=== PATIENT | female | born 1965 | race Caucasian/White ===

== ENCOUNTER 2025-05-12 20:58 | Inpatient (IN) | payer OTHER ==
[2025-05-12] MEDS ORDERED: Ondansetron PF 4 MG/2 ML Vial ONE (21:23)
[2025-05-12] MEDS ORDERED: Ketorolac Tromethamine 30 MG (1 mL) VIAL ONE (21:23)
[2025-05-12 21:35] LABS: Bacteria/HPF None Seen HPF (None Seen); CAUTI Indications for Culture Pelvic or flank pain; Glucose, Urine (Dipstick) Normal (Negative); Leukocyte Negative Leu/uL (Negative); Protein, Urine (Dipstick) Negative (Neg-Trace); Specific Gravity, Urine 1.020 (1.002-1.036); WBC/HPF None Seen HPF (0-3)
[2025-05-12 21:37] LABS: Urine Culture Reflex No No
[2025-05-12 21:40] LABS: #Basophils 0.04 10x3/uL (0.0-0.2); #Eosinophils 0.17 10x3/uL (0.0-0.7); #Monocytes 0.68 10x3/uL (0.11-0.59); #Neutrophils 7.68 10x3/uL (1.40-6.50); %Basophils 0.4 % (0.0-1.0); %Eosinophils 1.6 % (0.0-10.0); %Lymphocytes 19.6 % (21.0-51.0); %Monocytes 6.4 % (0.0-10.0); %Neutrophils 71.7 % (42.0-75.0); Hematocrit 35.6 % (36.0-47.0); Hemoglobin 12.3 g/dL (12.0-16.0); Mean Corpuscular Hemoglobin 29.8 pg (27.0-31.0); Mean Corpuscular Volume 86.2 fL (78.0-98.0); Platelet Count 176 10x3/uL (130-400); Red Blood Cell (RBC) Count 4.13 mill/uL (4.20-5.40); White Blood Cell (WBC) Count 10.69 10x3/uL (4.8-10.8)
[2025-05-12 21:56] LABS: ALT (SGPT) 47 U/L (Less than 34); AST (SGOT) 69 U/L (11-34); Albumin 4.2 g/dL (3.1-4.5); Alkaline Phosphatase 68 U/L (40-110); Anion Gap 18 mmol/L (10-20); BUN (Urea Nitrogen) 17 mg/dL (9.8-20.1); Bilirubin, Total 1.2 mg/dL (0.3-1.2); Calc. Creatinine Clearance 0 mL/min (70-130); Calcium 9.6 mg/dL (7.8-10.44); Carbon Dioxide 21 mmol/L (23-31); Chloride 105 mmol/L (98-107); Globulin 3.2 g/dL (2.4-3.5); Glucose 126 mg/dL (80-115); Lipase 46 U/L (8-78); Potassium 3.6 mmol/L (3.5-5.1); Sodium 140 mmol/L (136-145)
[2025-05-12 21:59] LABS: Troponin I Less than 0.010 ng/mL (< 0.028)
[2025-05-13] MEDS ORDERED: Melatonin 3 MG TAB PO PRN (00:42)
[2025-05-13] MEDS ORDERED: Senokot S 8.6-50 MG TAB PO PRN (00:42)
[2025-05-13] MEDS ORDERED: Acetaminophen 325 MG TAB PO PRN (00:42)
[2025-05-13] MEDS ORDERED: Ondansetron PF 4 MG/2 ML Vial IVP PRN (00:42)
[2025-05-13 02:15] VITALS: BMI 33.3
[2025-05-13] MEDS ORDERED: HYDROcodone/Acetaminophen 5/325 mg Tablet PO PRN (03:55)
[2025-05-13 05:53] LABS: #Basophils Less than 0.03 10x3/uL (0.0-0.2); #Eosinophils 0.10 10x3/uL (0.0-0.7); #Monocytes 0.47 10x3/uL (0.11-0.59); #Neutrophils 3.08 10x3/uL (1.40-6.50); %Basophils 0.4 % (0.0-1.0); %Eosinophils 1.9 % (0.0-10.0); %Lymphocytes 29.0 % (21.0-51.0); %Monocytes 9.1 % (0.0-10.0); %Neutrophils 59.4 % (42.0-75.0); Hematocrit 33.8 % (36.0-47.0); Hemoglobin 11.3 g/dL (12.0-16.0); Mean Corpuscular Hemoglobin 29.7 pg (27.0-31.0); Mean Corpuscular Volume 88.9 fL (78.0-98.0); Platelet Count 150 10x3/uL (130-400); Red Blood Cell (RBC) Count 3.80 mill/uL (4.20-5.40); White Blood Cell (WBC) Count 5.18 10x3/uL (4.8-10.8)
[2025-05-13 06:11] LABS: ALT (SGPT) 436 U/L (Less than 34); AST (SGOT) 667 U/L (11-34); Albumin 3.5 g/dL (3.1-4.5); Alkaline Phosphatase 70 U/L (40-110); Anion Gap 11 mmol/L (10-20); BUN (Urea Nitrogen) 13 mg/dL (9.8-20.1); Bilirubin, Total 1.6 mg/dL (0.3-1.2); Calc. Creatinine Clearance 86 mL/min (70-130); Calcium 8.8 mg/dL (7.8-10.44); Carbon Dioxide 25 mmol/L (23-31); Chloride 110 mmol/L (98-107); Globulin 2.7 g/dL (2.4-3.5); Glucose 104 mg/dL (80-115); Potassium 3.9 mmol/L (3.5-5.1); Sodium 142 mmol/L (136-145)
[2025-05-13] MEDS ORDERED: Bupivacaine 0.25% HCL 30 ML VIAL ONE (11:53)
[2025-05-13] MEDS ORDERED: CEFAZOLIN 2 GM VIAL ONE (12:52)
[2025-05-13] MEDS ORDERED: PROPOFOL 200 MG/20 ML VIAL ONE (13:04)
[2025-05-13] MEDS ORDERED: Lidocaine 1% PF 5 ML VIAL ONE (13:04)
[2025-05-13] MEDS ORDERED: PACU-Morphine 4MG/ML VIAL SLOW IVP PRN (13:46)
[2025-05-13] MEDS ORDERED: HYDROmorphone 0.5 MG/0.5 ML SYR SLOW IVP PRN (13:46)
[2025-05-13 17:03] VITALS: TEMP 97.9
[2025-05-13 19:44] VITALS: BP 158/86
== END 2025-05-13 19:45 | disposition home or self-care (01) | DRG 419 ==
LOC: ERS 20:58 → T4-B 05-13 00:42
PROVIDERS: ADMIT Student in an Organized Health Care Education/Training Program; ATTEND Hospitalist
PROC: 0FT44ZZ Resection of Gallbladder, Percutaneous Endoscopic Approach (ICD-10-PCS; principal; 2025-05-13)
DX: K80.12 Calculus of gallbladder with acute and chronic cholecystitis without obstruction (principal); Z98.890 Other specified postprocedural states; K91.5 Postcholecystectomy syndrome; Z85.3 Personal history of malignant neoplasm of breast; Z79.899 Other long term (current) drug therapy
CPT/HCPCS: 36415; 74181; 76376; 76705; 80053; 81001; 83690; 84484; 85025; 88304; 93005; C1889; J0169; J0665; J1100; J1885; J2405; J2543; J2704